=== PATIENT | female | born 1955 | race Caucasian/White ===

== ENCOUNTER 2020-02-11 10:59 | Outpatient (CLI) | payer BC ==
--- NOTE | 2020-02-11 11:56 | RAD ---
Sacroiliac joints 3 views HISTORY: Chronic joint pain. FINDINGS: Mild osteophytosis. Joint spaces are preserved. Sacral alae are intact. Degenerative changes of lower lumbar spine and hips. Metallic clips overlie the right abdomen. IMPRESSION : Mild osteoarthritic changes. No aggressive abnormalities are demonstrated.
--- NOTE | 2020-02-11 11:58 | RAD ---
Sacrum/coccyx 2 views HISTORY: Chronic pain. FINDINGS: Sacral alae are intact. No acute fracture, dislocation, or aggressive osseous erosions. There is osteophytosis of the sacroiliac joints, lumbar spine, and hips. Metallic clips overlie the r ight lower quadrant. Vascular calcifications overlie the retroperitoneum and pelvis. IMPRESSION : Osteoarthritic changes. No aggressive abnormalities are demonstrated. Atherosclerosis.
== END 2020-02-11 11:00 | disposition home or self-care (01) ==
LOC: SCSRAD 10:59
DX: M46.1 Sacroiliitis, not elsewhere classified (principal); I70.90 Unspecified atherosclerosis; M47.818 Spondylosis without myelopathy or radiculopathy, sacral and sacrococcygeal region
CPT/HCPCS: 72202; 72220

== ENCOUNTER 2021-11-12 15:06 | Observation (INO) | payer MEDICARE, BC ==
[~2021-11-12 15:06] MED LIST: GASTROGRAFIN 30 ML BOT ONE; Iopamidol-370 76% 500 ML 1 ML ONE
[2021-11-12 15:53] LABS: #Basophils 0.1 thou/uL (0.0-0.2); #Eosinphils 0.2 thou/uL (0.0-0.7); #Monocytes 0.5 thou/uL (0.11-0.59); #Neutrophils 6.3 thou/uL (1.40-6.50); %Basophils 1.1 % (0.0-1.0); %Eosinophils 1.9 % (0.0-10.0); %Lymphocytes 35.7 % (21.0-51.0); %Monocytes 4.4 % (0.0-10.0); %Neutrophils 56.9 % (42.0-75.0); Hemoglobin 13.8 g/dL (12.0-16.0); Mean Corpuscular HGB CONC 33.8 g/dL (32.0-36.0); Mean Corpuscular Volume 88.7 fL (78.0-98.0); Mean Platelet Volume 7.1 fL (7.4-10.4); Platelet Count 332 thou/uL (130-400); RBC Distribution Width 12.3 % (11.5-14.5); White Blood Cell (WBC) Count 11.1 thou/uL (4.8-10.8)
[2021-11-12] MEDS ORDERED: Ondansetron PF 4 MG/2 ML Vial ONE (16:12)
[2021-11-12] MEDS ORDERED: Morphine 4 MG/ML VIAL ONE (16:12)
[2021-11-12 16:14] LABS: ALT (SGPT) 13 U/L (8-55); AST (SGOT) 13 U/L (5-34); Albumin 3.9 g/dL (3.4-4.8); Alkaline Phosphatase 55 U/L (40-110); Anion Gap 15 mmol/L (10-20); BUN (Urea Nitrogen) 13 mg/dL (9.8-20.1); Bilirubin, Total 0.4 mg/dL (0.2-1.2); Calc. Creatinine Clearance 0 mL/min (70-130); Calcium 8.6 mg/dL (7.8-10.44); Carbon Dioxide 20 mmol/L (23-31); Chloride 101 mmol/L (98-107); Globulin 2.8 g/dL (2.4-3.5); Glucose 210 mg/dL (80-115); Lipase 21 U/L (8-78); Potassium 3.7 mmol/L (3.5-5.1); Protein, Total 6.7 g/dL (5.8-8.1); Sodium 132 mmol/L (136-145)
[2021-11-12 18:51] LABS: Lactic Acid 1.1 mmol/L (0.5-2.2)
[2021-11-12 19:41] LABS: Bilirubin Negative (Negative); Blood, Urine Negative (Negative); Clarity Clear (Clear); Glucose, Urine (Dipstick) Normal (Negative); Ketone, Urine Negative (Negative); Leukocyte Negative Leu/uL (Negative); Nitrite Negative (Negative); Protein, Urine (Dipstick) Negative (Neg-Trace); Specific Gravity, Urine 1.017 (1.002-1.036); Urobilinogen Normal mg/dL (Less than 2)
[2021-11-12] MEDS ORDERED: Aspirin Chewable 81 MG TAB ONE (19:56)
[2021-11-12] MEDS ORDERED: Dextrose 50% Abboject 50 ML SYRINGE SLOW IVP PRN (20:49)
[2021-11-12] MEDS ORDERED: HumaLOG 300 UNITS/3 ML VIAL SC PRN (20:49)
[2021-11-12] MEDS ORDERED: Dextrose 5% in Water 1,000 ML IV PRN (20:49)
[2021-11-12 21:16] LABS: Troponin I Less than 0.010 ng/mL (< 0.028)
[2021-11-12 21:31] LABS: Cardiac Risk 3.3 (Less than 4.5); Cholesterol 169 mg/dl (< 200 Desired); HDL Cholesterol 52 mg/dL (>60 Neg Risk); LDL Cholesterol, Calculated 66 mg/dL; Magnesium 1.6 mg/dL (1.6-2.6); Phosphorus 2.8 mg/dL (2.3-4.7); Triglycerides 257 mg/dL (Less than 150)
[2021-11-12 21:42] VITALS: BMI 36.3
[2021-11-12] MEDS: HYDROcodone/Acetaminophen 5/325 mg Tablet PO PRN (21:48)
[2021-11-12] MEDS ORDERED: Magnesium Oxide 400 MG TAB PO SCH (22:15)
[2021-11-12] MEDS ORDERED: DULoxetine 60 MG CAP PO SCH (22:45)
[2021-11-12] MEDS ORDERED: Lisinopril 20 MG TAB PO SCH (22:45)
[2021-11-12] MEDS ORDERED: Rosuvastatin 10 MG TAB PO SCH (22:45)
[2021-11-12] MEDS ORDERED: Amlodipine 10 MG TAB PO SCH (22:45)
[2021-11-12 22:51] LABS: Hemoglobin A1c 10.4 % (4.0-6.0)
[2021-11-13 00:32] LABS: Troponin I Less than 0.010 ng/mL (< 0.028)
[2021-11-13] MEDS: HYDROcodone/Acetaminophen 5/325 mg Tablet PO PRN ×2 (04:50→11:30)
[2021-11-13] MEDS ORDERED: Lactated Ringer's 1,000 ML IV SCH (05:45)
[2021-11-13] MEDS ORDERED: metFORMIN XR 500 MG TAB PO SCH (08:00)
[2021-11-13] MEDS ORDERED: Polyethylene Glycol 3350 17 GM Packet PO SCH (09:00)
[2021-11-13] MEDS ORDERED: Senokot S 8.6-50 MG TAB PO SCH (09:00)
[2021-11-13] MEDS ORDERED: DULoxetine 60 MG CAP PO SCH ×2 (09:00→21:00)
[2021-11-13] MEDS ORDERED: Rosuvastatin 10 MG TAB PO SCH ×2 (09:00→21:00)
[2021-11-13] MEDS ORDERED: Calcium Carbonate 600 MG + Vit D TAB PO SCH (09:00)
[2021-11-13] MEDS ORDERED: Magnesium Oxide 400 MG TAB PO SCH (09:00)
[2021-11-13] MEDS ORDERED: Lisinopril 20 MG TAB PO SCH (09:00)
[2021-11-13] MEDS ORDERED: Famotidine 20 MG TAB PO SCH (09:00)
[2021-11-13] MEDS ORDERED: Enoxaparin Sodium 40 MG/0.4 ML SYRINGE SC SCH (09:00)
[2021-11-13] MEDS ORDERED: Regadenoson 0.4 MG/5 ML SYRINGE ONE (09:29)
[2021-11-13 14:22] LABS: SARS-CoV-2 PCR by NAA Not Detected (NotDetected)
[2021-11-13 15:54] VITALS: BP 162/81; TEMP 97.4
[2021-11-13] MEDS ORDERED: Amlodipine 10 MG TAB PO SCH (21:00)
== END 2021-11-13 16:40 | disposition home or self-care (01) ==
LOC: ERS 15:06 → 2SW 20:07
PROVIDERS: ADMIT Internal Medicine; ATTEND Internal Medicine
DX: G89.29 Other chronic pain (principal); R10.12 Left upper quadrant pain; K59.00 Constipation, unspecified; E83.42 Hypomagnesemia; E11.10 Type 2 diabetes mellitus with ketoacidosis without coma; I10 Essential (primary) hypertension; F17.210 Nicotine dependence, cigarettes, uncomplicated; M79.7 Fibromyalgia; M54.9 Dorsalgia, unspecified; Z79.84 Long term (current) use of oral hypoglycemic drugs; Z79.899 Other long term (current) drug therapy; Z20.822 Contact with and (suspected) exposure to COVID-19
CPT/HCPCS: 71045; 74177; 78452; 80061; 81003; 82962 ×2; 83036; 83605; 83690; 83735; 84100; 84484 ×2; 87040; 87086; 93005; 93017; 94760; 96374; 96375; 99285; A9500; U0003; U0005; 36415; 36416; 80053; 84443; 85025; 96372; G0378; J1650; J1815; J2270; J2405; J2785; J7120; Q9963; Q9967

== ENCOUNTER 2023-05-13 04:39 | Inpatient (IN) | payer MEDICARE ==
[2023-05-13 05:26] LABS: #Basophils 0.1 thou/uL (0.0-0.2); #Eosinphils 0.4 thou/uL (0.0-0.7); #Monocytes 0.7 thou/uL (0.11-0.59); #Neutrophils 5.7 thou/uL (1.40-6.50); %Basophils 0.7 % (0.0-1.0); %Eosinophils 3.3 % (0.0-10.0); %Lymphocytes 35.1 % (21.0-51.0); %Monocytes 6.2 % (0.0-10.0); %Neutrophils 54.4 % (42.0-75.0); Hematocrit 34.8 % (36.0-47.0); Hemoglobin 11.8 g/dL (12.0-16.0); Mean Corpuscular HGB CONC 33.9 g/dL (32.0-36.0); Mean Corpuscular Hemoglobin 29.4 pg (27.0-31.0); Mean Corpuscular Volume 86.8 fl (78.0-98.0); Mean Platelet Volume 9.5 fL (7.4-10.4); Platelet Count 331 10x3/uL (130-400); RBC Distribution Width 13.2 % (11.5-14.5); Red Blood Cell (RBC) Count 4.01 mill/uL (4.20-5.40); White Blood Cell (WBC) Count 10.5 10x3/uL (4.8-10.8)
[2023-05-13 05:50] LABS: ALT (SGPT) 11 U/L (8-55); AST (SGOT) 14 U/L (5-34); Albumin 3.6 g/dL (3.4-4.8); Alkaline Phosphatase 57 U/L (40-110); Anion Gap 14 mmol/L (10-20); BUN (Urea Nitrogen) 15 mg/dL (9.8-20.1); Bilirubin, Total 0.2 mg/dL (0.2-1.2); Calc. Creatinine Clearance 0 mL/min (70-130); Calcium 8.6 mg/dL (7.8-10.44); Carbon Dioxide 22 mmol/L (23-31); Chloride 97 mmol/L (98-107); Estimated GFR 51; Globulin 2.7 g/dL (2.4-3.5); Glucose 271 mg/dL (80-115); Magnesium 1.7 mg/dL (1.6-2.6); Potassium 3.9 mmol/L (3.5-5.1); Protein, Total 6.3 g/dL (5.8-8.1); Sodium 129 mmol/L (136-145)
[2023-05-13 06:04] LABS: Troponin I 0.908 ng/mL (< 0.028)
[2023-05-13 06:12] LABS: SARS-CoV-2 NAA Rapid Test Not Detected (NotDetected)
[2023-05-13] MEDS ORDERED: Nitroglycerin 0.4 MG TAB 1 EACH ONE (06:26)
[2023-05-13] MEDS ORDERED: Aspirin Chewable 81 MG TAB ONE (06:26)
[2023-05-13] MEDS ORDERED: Nitroglycerin 0.4 MG TAB (25 Tab Bottle) SL PRN (06:27)
[2023-05-13] MEDS ORDERED: Senokot S 8.6-50 MG TAB PO PRN (06:30)
[2023-05-13] MEDS ORDERED: Ondansetron ODT 4 MG TAB PO PRN (06:30)
[2023-05-13] MEDS ORDERED: Acetaminophen 325 MG TAB PO PRN (06:30)
[2023-05-13] MEDS ORDERED: Dextrose 50% Abboject 50 ML SYRINGE SLOW IVP PRN (06:31)
[2023-05-13] MEDS ORDERED: Dextrose 5% in Water 1,000 ML IV PRN (06:31)
[2023-05-13] MEDS ORDERED: HumaLOG 300 UNITS/3 ML VIAL SC PRN (06:31)
[2023-05-13] MEDS ORDERED: Glucagon 1 MG/ML KIT IM PRN (06:31)
[2023-05-13 06:34] LABS: PTT 31.5 sec (22.9-36.1); Prothrombin Time 13.6 sec (12.0-14.7)
[2023-05-13 06:35] LABS: D-Dimer Test 2.41 *mcg/mL (0.27-0.43)
[2023-05-13 07:36] LABS: Hemoglobin A1c 7.2 % (4.0-6.0)
[2023-05-13 07:57] LABS: Critical Call Chem Troponin I RESULT DECREASING
[2023-05-13] MEDS ORDERED: Furosemide 20 MG/2 ML VIAL SLOW IVP SCH (08:15)
[2023-05-13 08:59] VITALS: BMI 38.2
[2023-05-13] MEDS ORDERED: Enoxaparin 120 MG/0.8 ML SYRINGE SC SCH (09:00)
[2023-05-13] MEDS: Enoxaparin 120 MG/0.8 ML SYRINGE SC SCH ×2 (09:04→21:39)
[2023-05-13] MEDS: Aspirin 81 mg Enteric Coated Tablet PO SCH (09:05)
[2023-05-13] MEDS ORDERED: Iopamidol-370 76% 500 ML MDV (1 ML CHARGE) ONE (09:22)
[2023-05-13 10:04] LABS: Troponin I 0.727 ng/mL (< 0.028)
[2023-05-13] MEDS: Famotidine 20 MG TAB PO SCH ×2 (10:07→21:38)
[2023-05-13] MEDS: Furosemide 20 MG/2 ML VIAL SLOW IVP SCH (15:08)
[2023-05-13] MEDS ORDERED: HYDROcodone/Acetaminophen 5/325 mg Tablet PO PRN (15:08)
[2023-05-13] MEDS ORDERED: Spironolactone 25 MG TAB PO SCH (17:00)
[2023-05-13] MEDS ORDERED: Furosemide 40 MG/4 ML VIAL SLOW IVP SCH (17:00)
[2023-05-13] MEDS ORDERED: Empagliflozin 10 MG TAB PO SCH (17:00)
[2023-05-13] MEDS ORDERED: Insulin Glargine 30 UNITS/0.3 ML VIAL SC SCH ×2 (21:00→22:15)
[2023-05-13] MEDS: HYDROcodone/Acetaminophen 5/325 mg Tablet PO PRN (21:37)
[2023-05-13] MEDS: Lisinopril 10 MG TAB PO SCH (21:38)
[2023-05-13] MEDS: DULoxetine 60 MG CAP PO SCH (21:39)
[2023-05-13] MEDS: Rosuvastatin 20 MG TAB PO SCH (21:39)
[2023-05-14] MEDS: HYDROcodone/Acetaminophen 5/325 mg Tablet PO PRN ×5 (02:58→21:26)
[2023-05-14 04:37] LABS: #Basophils 0.1 thou/uL (0.0-0.2); #Eosinphils 0.2 thou/uL (0.0-0.7); #Monocytes 0.9 thou/uL (0.11-0.59); #Neutrophils 7.2 thou/uL (1.40-6.50); %Basophils 0.5 % (0.0-1.0); %Lymphocytes 26.8 % (21.0-51.0); %Monocytes 7.6 % (0.0-10.0); %Neutrophils 62.9 % (42.0-75.0); Hematocrit 35.8 % (36.0-47.0); Hemoglobin 12.3 g/dL (12.0-16.0); Mean Corpuscular HGB CONC 34.4 g/dL (32.0-36.0); Mean Corpuscular Hemoglobin 29.4 pg (27.0-31.0); Mean Corpuscular Volume 85.6 fl (78.0-98.0); Mean Platelet Volume 9.4 fL (7.4-10.4); Platelet Count 305 10x3/uL (130-400); RBC Distribution Width 13.4 % (11.5-14.5); Red Blood Cell (RBC) Count 4.18 mill/uL (4.20-5.40); White Blood Cell (WBC) Count 11.4 10x3/uL (4.8-10.8)
[2023-05-14 05:05] LABS: Anion Gap 15 mmol/L (10-20); BUN (Urea Nitrogen) 15 mg/dL (9.8-20.1); Calc. Creatinine Clearance 93 mL/min (70-130); Calcium 9.2 mg/dL (7.8-10.44); Carbon Dioxide 28 mmol/L (23-31); Cardiac Risk 3.4 (Less than 4.5); Chloride 102 mmol/L (98-107); Cholesterol 129 mg/dl (< 200 Desired); Estimated GFR 55; Glucose 121 mg/dL (80-115); HDL Cholesterol 38 mg/dL (>60 Neg Risk); LDL Cholesterol, Calculated 41 mg/dL; Potassium 3.6 mmol/L (3.5-5.1); Sodium 141 mmol/L (136-145); Triglycerides 250 mg/dL (Less than 150)
[2023-05-14] MEDS: Furosemide 20 MG/2 ML VIAL SLOW IVP SCH ×2 (06:32→14:52)
[2023-05-14] MEDS: Enoxaparin 120 MG/0.8 ML SYRINGE SC SCH ×2 (08:34→22:09)
[2023-05-14] MEDS: Lisinopril 10 MG TAB PO SCH ×2 (08:35→22:08)
[2023-05-14] MEDS: Spironolactone 25 MG TAB PO SCH (08:35)
[2023-05-14] MEDS: Polyethylene Glycol 3350 17 GM Packet PO SCH (08:35)
[2023-05-14] MEDS: Calcium Carbonate 600 MG + Vit D TAB PO SCH (08:36)
[2023-05-14] MEDS: Senokot S 8.6-50 MG TAB PO SCH (08:36)
[2023-05-14] MEDS: Aspirin 81 mg Enteric Coated Tablet PO SCH (08:36)
[2023-05-14] MEDS: Famotidine 20 MG TAB PO SCH ×2 (08:36→22:08)
[2023-05-14] MEDS: HumaLOG 300 UNITS/3 ML VIAL SC PRN ×2 (12:37→18:36)
[2023-05-14] MEDS ORDERED: Insulin Glargine 30 UNITS/0.3 ML VIAL SC SCH (21:00)
[2023-05-14] MEDS: Rosuvastatin 20 MG TAB PO SCH (22:08)
[2023-05-14] MEDS: DULoxetine 60 MG CAP PO SCH (22:08)
[2023-05-15] MEDS: HYDROcodone/Acetaminophen 5/325 mg Tablet PO PRN ×3 (01:59→15:02)
[2023-05-15 04:08] LABS: #Basophils 0.1 thou/uL (0.0-0.2); #Eosinphils 0.3 thou/uL (0.0-0.7); #Monocytes 0.8 thou/uL (0.11-0.59); #Neutrophils 4.9 thou/uL (1.40-6.50); %Basophils 0.8 % (0.0-1.0); %Lymphocytes 39.6 % (21.0-51.0); %Monocytes 7.7 % (0.0-10.0); %Neutrophils 48.6 % (42.0-75.0); Hematocrit 35.4 % (36.0-47.0); Hemoglobin 12.2 g/dL (12.0-16.0); Mean Corpuscular HGB CONC 34.5 g/dL (32.0-36.0); Mean Corpuscular Hemoglobin 29.3 pg (27.0-31.0); Mean Corpuscular Volume 85.1 fl (78.0-98.0); Mean Platelet Volume 9.5 fL (7.4-10.4); Platelet Count 318 10x3/uL (130-400); RBC Distribution Width 13.1 % (11.5-14.5); Red Blood Cell (RBC) Count 4.16 mill/uL (4.20-5.40)
[2023-05-15 04:34] LABS: Anion Gap 14 mmol/L (10-20); BUN (Urea Nitrogen) 14 mg/dL (9.8-20.1); Calc. Creatinine Clearance 92 mL/min (70-130); Calcium 8.9 mg/dL (7.8-10.44); Carbon Dioxide 28 mmol/L (23-31); Chloride 98 mmol/L (98-107); Estimated GFR 55; Glucose 129 mg/dL (80-115); Potassium 3.2 mmol/L (3.5-5.1); Sodium 137 mmol/L (136-145)
[2023-05-15] MEDS: Furosemide 20 MG/2 ML VIAL SLOW IVP SCH ×2 (07:03→14:57)
[2023-05-15] MEDS ORDERED: Heparin 10,000 UNITS/ 10 ML VIAL ONE (10:16)
[2023-05-15] MEDS ORDERED: Lidocaine 1% (PF) 30 ML VIAL ONE (10:16)
[2023-05-15] MEDS: Famotidine 20 MG TAB PO SCH (10:38)
[2023-05-15] MEDS: Enoxaparin 120 MG/0.8 ML SYRINGE SC SCH (10:38)
[2023-05-15] MEDS ORDERED: fentaNYL 50 mcg/mL 1 mL Vial ONE ×2 (10:44→11:23)
[2023-05-15] MEDS ORDERED: Midazolam HCl 2 mg/2 ml Vial ONE (10:44)
[2023-05-15] MEDS ORDERED: Sodium Chloride 0.9% 200 ML IV PRN (11:40)
[2023-05-15] MEDS ORDERED: Nitroglycerin 0.4 MG TAB (25 Tab Bottle) SL PRN (11:40)
[2023-05-15] MEDS: Aspirin 81 mg Enteric Coated Tablet PO SCH (12:09)
[2023-05-15] MEDS: Calcium Carbonate 600 MG + Vit D TAB PO SCH (12:09)
[2023-05-15] MEDS: Lisinopril 10 MG TAB PO SCH (12:09)
[2023-05-15] MEDS: Spironolactone 25 MG TAB PO SCH (12:09)
[2023-05-15 14:55] VITALS: BP 145/75; TEMP 98
[2023-05-15] MEDS: Senokot S 8.6-50 MG TAB PO SCH (14:57)
[2023-05-15] MEDS: Polyethylene Glycol 3350 17 GM Packet PO SCH (14:57)
[2023-05-15] MEDS ORDERED: Potassium Chloride 20 MEQ TAB PO SCH (16:15)
[2023-05-16] MEDS ORDERED: Furosemide 20 MG TAB PO SCH (09:00)
== END 2023-05-15 17:15 | disposition home or self-care (01) | DRG 280 ==
LOC: ERS 04:39 → 2NO 06:36
PROVIDERS: ADMIT Student in an Organized Health Care Education/Training Program; ATTEND Internal Medicine
PROC: 4A023N7 Measurement of Cardiac Sampling and Pressure, Left Heart, Percutaneous Approach (ICD-10-PCS; principal; 2023-05-15)
PROC: B2151ZZ Fluoroscopy of Left Heart using Low Osmolar Contrast (ICD-10-PCS; 2023-05-15)
PROC: B2111ZZ Fluoroscopy of Multiple Coronary Arteries using Low Osmolar Contrast (ICD-10-PCS; 2023-05-15)
DX: I21.4 Non-ST elevation (NSTEMI) myocardial infarction (principal); I50.33 Acute on chronic diastolic (congestive) heart failure; E87.1 Hypo-osmolality and hyponatremia; I11.0 Hypertensive heart disease with heart failure; I25.10 Atherosclerotic heart disease of native coronary artery without angina pectoris; K21.9 Gastro-esophageal reflux disease without esophagitis; E78.5 Hyperlipidemia, unspecified; E11.9 Type 2 diabetes mellitus without complications; Z90.49 Acquired absence of other specified parts of digestive tract; Z98.890 Other specified postprocedural states; F32.A Depression, unspecified; F17.210 Nicotine dependence, cigarettes, uncomplicated; Z79.899 Other long term (current) drug therapy; Z79.01 Long term (current) use of anticoagulants; Z79.4 Long term (current) use of insulin; E66.01 Morbid (severe) obesity due to excess calories; Z68.38 Body mass index [BMI] 38.0-38.9, adult; I48.0 Paroxysmal atrial fibrillation; Z79.82 Long term (current) use of aspirin; Z20.822 Contact with and (suspected) exposure to COVID-19; Z88.7 Allergy status to serum and vaccine
CPT/HCPCS: 36415; 36416; 71045; 71275; 80048; 80053; 80061; 83036; 83735; 83880; 84443; 84484; 85025; 85379; 85610; 85730; 93005; 93306; 93458; 96372; 99152; 99153; C1769; C1887; C1894; J1644; J1650; J1815; J1940; J2001; J2250; J3010; Q9967; U0002

== ENCOUNTER 2023-05-16 16:50 | Emergency (ER) | payer MEDICARE ==
[2023-05-16 18:35] LABS: #Basophils 0.1 thou/uL (0.0-0.2); #Eosinphils 0.1 thou/uL (0.0-0.7); #Monocytes 0.5 thou/uL (0.11-0.59); #Neutrophils 9.4 thou/uL (1.40-6.50); %Basophils 0.6 % (0.0-1.0); %Eosinophils 0.7 % (0.0-10.0); %Lymphocytes 16.6 % (21.0-51.0); %Monocytes 4.2 % (0.0-10.0); %Neutrophils 77.6 % (42.0-75.0); Hematocrit 40.2 % (36.0-47.0); Hemoglobin 13.5 g/dL (12.0-16.0); Mean Corpuscular HGB CONC 33.6 g/dL (32.0-36.0); Mean Corpuscular Hemoglobin 29.2 pg (27.0-31.0); Mean Platelet Volume 9.2 fL (7.4-10.4); Platelet Count 316 10x3/uL (130-400); RBC Distribution Width 13.2 % (11.5-14.5); Red Blood Cell (RBC) Count 4.62 mill/uL (4.20-5.40); White Blood Cell (WBC) Count 12.1 10x3/uL (4.8-10.8)
[2023-05-16 19:08] LABS: Troponin I 0.162 ng/mL (< 0.028)
[2023-05-16 19:11] LABS: ALT (SGPT) 15 U/L (8-55); AST (SGOT) 18 U/L (5-34); Albumin 4.1 g/dL (3.4-4.8); Alkaline Phosphatase 60 U/L (40-110); Anion Gap 14 mmol/L (10-20); BUN (Urea Nitrogen) 12 mg/dL (9.8-20.1); Bilirubin, Total 0.4 mg/dL (0.2-1.2); Calc. Creatinine Clearance 0 mL/min (70-130); Calcium 9.1 mg/dL (7.8-10.44); Carbon Dioxide 26 mmol/L (23-31); Chloride 98 mmol/L (98-107); Estimated GFR 51; Globulin 2.5 g/dL (2.4-3.5); Glucose 151 mg/dL (80-115); Protein, Total 6.6 g/dL (5.8-8.1); Sodium 134 mmol/L (136-145)
== END 2023-05-16 20:25 | disposition home or self-care (01) ==
LOC: ERS 16:50
DX: R55 Syncope and collapse (principal); I95.9 Hypotension, unspecified; I25.10 Atherosclerotic heart disease of native coronary artery without angina pectoris; K21.9 Gastro-esophageal reflux disease without esophagitis; E78.5 Hyperlipidemia, unspecified; E11.9 Type 2 diabetes mellitus without complications; F17.210 Nicotine dependence, cigarettes, uncomplicated
CPT/HCPCS: 36415; 71045; 80053; 83605; 83880; 84484; 85025; 93005; 96360

== ENCOUNTER 2023-10-19 | Inpatient (IN) | payer MEDICARE | END 2023-10-21 13:40 | disposition home or self-care (01) | DRG 641 | PROVIDERS: ADMIT Internal Medicine | DX: E87.1 Hypo-osmolality and hyponatremia (principal); N17.9 Acute kidney failure, unspecified; I13.0 Hypertensive heart and chronic kidney disease with heart failure and stage 1 through stage 4 chronic kidney disease, or unspecified chronic kidney disease; I50.32 Chronic diastolic (congestive) heart failure; I25.10 Atherosclerotic heart disease of native coronary artery without angina pectoris; K21.9 Gastro-esophageal reflux disease without esophagitis; E78.5 Hyperlipidemia, unspecified; K44.9 Diaphragmatic hernia without obstruction or gangrene; M79.7 Fibromyalgia; F17.210 Nicotine dependence, cigarettes, uncomplicated; N18.9 Chronic kidney disease, unspecified; F32.A Depression, unspecified; E11.22 Type 2 diabetes mellitus with diabetic chronic kidney disease; N18.30 Chronic kidney disease, stage 3 unspecified; I48.0 Paroxysmal atrial fibrillation; E66.01 Morbid (severe) obesity due to excess calories; Z68.39 Body mass index [BMI] 39.0-39.9, adult; Z98.890 Other specified postprocedural states; Z79.01 Long term (current) use of anticoagulants; Z88.7 Allergy status to serum and vaccine; Z71.6 Tobacco abuse counseling; Z79.899 Other long term (current) drug therapy; Z79.82 Long term (current) use of aspirin; Z79.4 Long term (current) use of insulin; Z90.49 Acquired absence of other specified parts of digestive tract; Z90.89 Acquired absence of other organs ==

== ENCOUNTER 2024-04-28 03:26 | Emergency (ER) | payer MEDICARE ==
[2024-04-28] MEDS ORDERED: hydrALAZINE 20 MG/ML VIAL ONE (04:34)
[2024-04-28] MEDS ORDERED: Morphine 2 MG/ML VIAL ONE (04:35)
[2024-04-28 04:57] LABS: #Basophils 0.09 10x3/uL (0.0-0.2); %Eosinophils 2.8 % (0.0-10.0); %Lymphocytes 30.8 % (21.0-51.0); %Monocytes 5.6 % (0.0-10.0); %Neutrophils 59.5 % (42.0-75.0); Hematocrit 34.9 % (36.0-47.0); Hemoglobin 11.6 g/dL (12.0-16.0); Mean Corpuscular HGB CONC 33.2 g/dL (32.0-36.0); Mean Corpuscular Hemoglobin 27.3 pg (27.0-31.0); Mean Corpuscular Volume 82.1 fL (78.0-98.0); Mean Platelet Volume 9.4 fL (7.4-10.4); Platelet Count 300 10x3/uL (130-400); RBC Distribution Width 15.3 % (11.5-14.5); Red Blood Cell (RBC) Count 4.25 mill/uL (4.20-5.40)
[2024-04-28 05:11] LABS: ALT (SGPT) 16 U/L (8-55); AST (SGOT) 15 U/L (5-34); Albumin 3.3 g/dL (3.4-4.8); Alkaline Phosphatase 62 U/L (40-110); Anion Gap 14 mmol/L (10-20); BUN (Urea Nitrogen) 11 mg/dL (9.8-20.1); Bilirubin, Total 0.2 mg/dL (0.2-1.2); Calc. Creatinine Clearance 0 mL/min (70-130); Calcium 8.8 mg/dL (7.8-10.44); Carbon Dioxide 22 mmol/L (23-31); Chloride 106 mmol/L (98-107); Estimated GFR 67; Glucose 146 mg/dL (80-115); Protein, Total 6.3 g/dL (5.8-8.1); Sodium 138 mmol/L (136-145)
[2024-04-28] MEDS ORDERED: diphenhydrAMINE 50 MG/ML VIAL ONE (05:48)
[2024-04-28] MEDS ORDERED: Metoclopramide HCl 10 MG (2 mL) VIAL ONE (05:48)
== END 2024-04-28 07:29 | disposition home or self-care (01) ==
LOC: ERS 03:26
DX: G43.909 Migraine, unspecified, not intractable, without status migrainosus (principal); I11.0 Hypertensive heart disease with heart failure; I50.30 Unspecified diastolic (congestive) heart failure; I25.10 Atherosclerotic heart disease of native coronary artery without angina pectoris; I48.91 Unspecified atrial fibrillation; E11.9 Type 2 diabetes mellitus without complications; K21.9 Gastro-esophageal reflux disease without esophagitis; F17.210 Nicotine dependence, cigarettes, uncomplicated
CPT/HCPCS: 70450; 71045; 80053; 84484; 85025; 93005; 96374; 96375; 99285; J0360; J1200; J2272; J2765